=== PATIENT | female | born 1985 | race Caucasian/White ===

== ENCOUNTER → 2016-07-11 | Outpatient (REF) | payer OTHER | LOC: M LAB REF 17:10 | PROVIDERS: ATTEND Physician Assistant | DX: R30.0 Dysuria (principal) ==

== ENCOUNTER 2016-09-08 08:40 | Emergency (ER) | payer OTHER ==
[~2016-09-08] VITALS: Ht 175.3 cm; Wt 61.2 kg
[2016-09-08] MEDS ORDERED: LEXA1TAB PO (08:53)
[2016-09-08 09:13] LABS: CONTROL LINE UCG INT CTR LINE PRESENT
[2016-09-08 09:20] LABS: CALCIUM OXALATE CRYSTALS SMALL; RENAL EPITHELIAL CELLS 1 /HPF
[2016-09-08 10:10] VITALS: BP 107/69
[2016-09-08] MEDS ORDERED: BACTRIM 160MG/800MG DS TAB PO ONE (10:15)
[2016-09-08] MEDS ORDERED: PYRI200T5 PO (10:19)
[2016-09-08] MEDS ORDERED: BACT800T5 PO (10:19)
== END 2016-09-08 10:25 | disposition home or self-care (01) ==
LOC: M ED 10:19
DX: N30.00 Acute cystitis without hematuria (principal)

== ENCOUNTER → 2016-09-10 | Outpatient (REF) | payer OTHER ==
[~2016-09-10] MED LIST: BACT800T5 PO; LEXA1TAB PO; PYRI200T5 PO
== END ==
LOC: M LAB REF 16:55
PROVIDERS: ATTEND Family Medicine
DX: J02.9 Acute pharyngitis, unspecified (principal)

== ENCOUNTER → 2017-04-17 | Outpatient (REF) | payer OTHER ==
[~2017-04-17] MED LIST changes: +PYRI1TAB5 PO; -PYRI200T5 PO
== END ==
LOC: M LAB REF 17:14
PROVIDERS: ATTEND Physician Assistant Medical
DX: R30.0 Dysuria (principal)

== ENCOUNTER 2017-05-12 07:22 | Outpatient (CLI) | payer OTHER ==
[2017-05-12 10:05] LABS: APPEARANCE, URINE HAZY (CLEAR); BACTERIA, URINE AUTO 1+ (NEGATIVE); BILIRUBIN, URINE AUTO NEGATIVE (NEGATIVE); BLOOD, URINE BLOOD NEGATIVE (NEGATIVE); COLOR, URINE STRAW (YELLOW); GLUCOSE, URINE (UA) AUTO NEGATIVE (NEGATIVE); KETONE, URINE AUTO NEGATIVE (NEGATIVE); LEUKOCYTE ESTERASE, URINE AUTO NEGATIVE (NEGATIVE); NITRITE, URINE AUTO NEGATIVE (NEGATIVE); PROTEIN, URINE AUTO NEGATIVE (NEGATIVE); RBC, URINE AUTO 0 /HPF (0-3); SPECIFIC GRAVITY URINE AUTO 1.002 (1.002-1.035); SQUAMOUS EPITHELIAL CELL UR AU 6 /HPF (0-6); UROBILINOGEN, URINE AUTO 0.2 mg/dL (0.0-2.0); WBC, URINE AUTO 1 /HPF (0-3)
== END 2017-05-12 10:00 | disposition home or self-care (01) ==
LOC: M LDO 07:22
DX: O99.89 Other specified diseases and conditions complicating pregnancy, childbirth and the puerperium (principal); R10.9 Unspecified abdominal pain; M54.40 Lumbago with sciatica, unspecified side; Z3A.25 25 weeks gestation of pregnancy
CPT/HCPCS: 76817